=== PATIENT | female | born 1935 | race African-American/Black ===

== ENCOUNTER 2019-07-07 14:38 | Inpatient (IN) | payer MEDICARE ==
[~2019-07-07] VITALS: Ht 162.6 cm; Wt 70.3 kg
[2019-07-07] MEDS ORDERED: METFORMIN HCL500 M1 ORAL (14:46)
[2019-07-07] MEDS ORDERED: Morphine Sulfate 2mg/ml Inj(IV/IM USE ONLY) IVP ONE (15:00)
--- NOTE | 2019-07-07 15:09 | Emergency Room Report ---
History of Present Illness General Chief Complaint: Lower Extremity Injury Source: Patient, EMS Present Illness HPI 83-year-old female presents ED for evaluation. Brought in by EMS from home. Patient had mechanical fall today. Complaining of left hip pain. Denies hitting her head or LOC. Unable to bear weight. 10 out of 10, sharp, radiating through the thigh. Was given fentanyl IV for pain by EMS. No other aggravating relieving factors. Denies any other associated symptoms Allergies: Coded Allergies: No Known Allergies (Unverified , 07/07/19) Patient History Past Medical History: DM, HTN Past Surgical History: none Pertinent Family History: none Social History: Denies: smoking, alcohol use, drug use Now: No Immunizations: UTD Reviewed Nursing Documentation: PMH: Agreed; PSxH: Agreed Nursing Documentation-PMH Past Medical History: No History, Except For Hx Hypertension: Yes Hx Diabetes: Yes Review of Systems All Other Systems: negative except mentioned in HPI Physical Exam Vital Signs Date Time Temp Pulse Resp B/P (MAP) Pulse Ox O2 Delivery O2 Flow Rate FiO2 07/07/19 14:42 98.2 64 16 154/58 (90) 99 Room Air Sp02 EP Interpretation: reviewed, normal General Appearance: no apparent distress, alert, GCS 15, non-toxic Head: normocephalic, atraumatic Eyes: bilateral eye normal inspection, bilateral eye PERRL ENT: hearing grossly normal, normal pharynx, no angioedema, normal voice Neck: full range of motion, supple/symm/no masses Respiratory: chest non-tender, lungs clear, normal breath sounds, speaking full sentences Cardiovascular #1: regular rate, rhythm, no edema Cardiovascular #2: 2+ carotid (R), 2+ carotid (L), 2+ radial (R), 2+ radial (L) , 2+ dorsalis pedis (R), 2+ dorsalis pedis (L) Gastrointestinal: normal bowel sounds, non tender, soft, non-distended, no guarding, no rebound Rectal: deferred Genitourinary: normal inspection, no CVA tenderness, ext genitalia/vag normal Musculoskeletal: back normal, decreased range of motion, normal range of motion , gait/station normal, tender - L femur, L hip Neurologic: alert, motor strength/tone normal, oriented x3, sensory intact, responsive, speech normal Psychiatric: judgement/insight normal, memory normal, mood/affect normal, no suicidal/homicidal ideation Reflexes: 3+ bicep (R), 3+ bicep (L), 3+ tricep (R), 3+ tricep (L), 3+ knee (R) , 3+ knee (L) Skin: other - see nursing skin notes Lymphatic: no adenopathy Medical Decision Making Diagnostic Impression: Primary Impression: Intertrochanteric fracture of left femur Qualified Codes: S72.145A - Nondisplaced intertrochanteric fracture of left femur, initial encounter for closed fracture ER Course Hospital Course 83-year-old female presents to ED with L hip pain s/p fall Differential diagnoses include: fracture, dislocation, contusion Clinical course Patient placed on stretcher. After initial history and physical I ordered labs , pain medication and imaging studies Labs reviewed-mild leukocytosis noted, electrolytes okay, hemoglobin/hematocrit okay Femur x-ray L intertrochanteric fx CT Pelvis shows L intertrochanteric fx Case discussed with Dr. Hernandez who agreed to consult on this case. With family and patient at bedside. Case discussed with Dr. Alfredo who agreed to accept the patient to his service for further care and support i. I feel this is a highly complex case requiring extensive working including EKG/Rhythm strip, Xray/CT/US, Blood/urine lab work, repeat exams while in ED, and administration of strong opiates/narcotics for pain control, admission to hospital or close patient follow up. Diagnosis - intertrochanteric fracture left femur Admitted to floor in serious condition Labs Test 07/07/19 15:08 White Blood Count 17.0 K/UL (4.8-10.8) Red Blood Count 4.13 M/UL (4.20-5.40) Hemoglobin 12.0 G/DL (12.0-16.0) Hematocrit 34.8 % (37.0-47.0) Mean Corpuscular Volume 84 FL (80-99) Mean Corpuscular Hemoglobin 28.9 PG (27.0-31.0) Mean Corpuscular Hemoglobin Concent 34.4 G/DL (32.0-36.0) Red Cell Distribution Width 11.5 % (11.6-14.8) Platelet Count 221 K/UL (150-450) Mean Platelet Volume 6.2 FL (6.5-10.1) Neutrophils (%) (Auto) 84.2 % (45.0-75.0) Lymphocytes (%) (Auto) 8.0 % (20.0-45.0) Monocytes (%) (Auto) 5.2 % (1.0-10.0) Eosinophils (%) (Auto) 1.7 % (0.0-3.0) Basophils (%) (Auto) 1.0 % (0.0-2.0) Prothrombin Time 10.3 SEC (9.30-11.50) Prothromb Time International Ratio 1.0 (0.9-1.1) Activated Partial Thromboplast Time 26 SEC (23-33) Sodium Level 138 MMOL/L (136-145) Potassium Level 4.6 MMOL/L (3.5-5.1) Chloride Level 102 MMOL/L (98-107) Carbon Dioxide Level 24 MMOL/L (21-32) Anion Gap 12 mmol/L (5-15) Blood Urea Nitrogen 22 mg/dL (7-18) Creatinine 0.9 MG/DL (0.55-1.30) Estimat Glomerular Filtration Rate 59.7 mL/min (>60) Glucose Level 143 MG/DL (74-106) Calcium Level 9.4 MG/DL (8.5-10.1) Total Bilirubin 0.4 MG/DL (0.2-1.0) Aspartate Amino Transf (AST/SGOT) 15 U/L (15-37) Alanine Aminotransferase (ALT/SGPT) 16 U/L (12-78) Alkaline Phosphatase 78 U/L (46-116) Total Protein 7.3 G/DL (6.4-8.2) Albumin 3.7 G/DL (3.4-5.0) Globulin 3.6 g/dL Albumin/Globulin Ratio 1.0 (1.0-2.7) Other X-Ray Diagnostic Results Other X-Ray Diagnostic Results : X-Ray ordered: L femur # of Views/Limited Vs Complete: 3 View Indication: Pain EP Interpretation: Yes Interpretation: no dislocation, no soft tissue swelling, other - L intertrochanteric fx Impression: Other - fx Electronically Signed by: Electronically signed by Damaso Gillis MD CT/MRI/US Diagnostic Results CT/MRI/US Diagnostic Results : Imaging Test Ordered: CT Pelvis Impression Comparison: none Findings: There is a nondisplaced intertrochanteric left hip fracture. There is evidence of a slight left-sided soft tissue confusion of the subcutaneous fat as well as the musculature posterior to the intertrochanteric region. No evidence of pelvic fracture demonstrated. No evidence of sacral fracture. The joint spaces are preserved. There are degenerative changes of the lumbosacral junction and sacroiliac joints. The pelvic viscera demonstrate colonic diverticulosis. Last Vital Signs Date Time Temp Pulse Resp B/P (MAP) Pulse Ox O2 Delivery O2 Flow Rate FiO2 07/07/19 14:42 98.2 64 16 154/58 (90) 99 Room Air Status: improved Disposition: ADMITTED INPATIENT Condition: Serious Damaso Gillis MD Jul 07, 2019 15:09
[2019-07-07 15:39] LABS: EOSINOPHILS % (AUTO) 1.7 % (0.0-3.0); HEMATOCRIT 34.8 % (37.0-47.0); MEAN CORPUSCULAR VOLUME 84 FL (80-99); MONOCYTES % (AUTO) 5.2 % (1.0-10.0); NEUTROPHILS % (AUTO) 84.2 % (45.0-75.0); PLATELET COUNT 221 K/UL (150-450); RED BLOOD COUNT 4.13 M/UL (4.20-5.40); RED CELL DISTRIBUTION WIDTH 11.5 % (11.6-14.8)
[2019-07-07 16:02] LABS: ALANINE AMINOTRANSFERASE 16 U/L (12-78); ALBUMIN 3.7 G/DL (3.4-5.0); ALKALINE PHOSPHATASE 78 U/L (46-116); ANION GAP 12 mmol/L (5-15); ASPARTATE AMINO TRANSFERASE 15 U/L (15-37); BILIRUBIN,TOTAL 0.4 MG/DL (0.2-1.0); BLOOD UREA NITROGEN 22 mg/dL (7-18); CALCIUM 9.4 MG/DL (8.5-10.1); CARBON DIOXIDE 24 MMOL/L (21-32); CHLORIDE 102 MMOL/L (98-107); CREATININE 0.9 MG/DL (0.55-1.30); POTASSIUM 4.6 MMOL/L (3.5-5.1); SODIUM 138 MMOL/L (136-145)
--- NOTE | 2019-07-07 16:07 | Diagnostic Imaging Report ---
Indication: Pelvic pain and hip pain status post mechanical fall today Technique: Noncontrast spiral acquisitions obtained through the pelvis. Multiplanar reconstructions generated. Total dose length product 215 mGycm. CTDIvol(s) 5.9 mGy. Dose reduction achieved using automated exposure control Comparison: none Findings: There is a nondisplaced intertrochanteric left hip fracture. There is evidence of a slight left-sided soft tissue confusion of the subcutaneous fat as well as the musculature posterior to the intertrochanteric region. No evidence of pelvic fracture demonstrated. No evidence of sacral fracture. The joint spaces are preserved. There are degenerative changes of the lumbosacral junction and sacroiliac joints. The pelvic viscera demonstrate colonic diverticulosis. Impression: Positive for nondisplaced left hip intertrochanteric fracture. There is mild overlying soft tissue contusion demonstrated Degenerative changes, as described Colonic diverticulosis incidentally noted The CT scanner at [facility] is accredited by the [employer] and the scans are performed using protocols designed to limit radiation exposure to as low as reasonably achievable to attain images of sufficient resolution adequate for diagnostic evaluation.
--- NOTE | 2019-07-07 17:12 | Diagnostic Imaging Report ---
. Indications: Pain, status post fall Technique: Two views of the left femur Comparison: None Findings: There is a nondisplaced intertrochanteric fracture of the left hip. No distal femoral fracture demonstrated. There are degenerative changes of the knee joint. Calcifications centrally within the knee may reflect an old bone infarct. There are also vascular calcifications. Impression: Positive for left hip intertrochanteric fracture, also described on separate CT scan Other findings as noted
[2019-07-07 19:00] VITALS: BP 142/62
[2019-07-07] MEDS ORDERED: FUROSEMIDE40 MG ORAL (19:22)
[2019-07-07] MEDS ORDERED: PRAVACHOL40 MG ORAL (19:23)
[2019-07-07] MEDS ORDERED: AMLODIPINE BESY10 MG ORAL (19:23)
[2019-07-07] MEDS ORDERED: COREG25 MG ORAL (19:23)
[2019-07-07] MEDS ORDERED: Morphine Sulfate 2mg/ml Inj(IV/IM USE ONLY) IVP PRN (19:33)
--- NOTE | 2019-07-07 21:12 | Cardiology Progress Note ---
Assessment/Plan Assessment/Plan pt evlauted at bedside full ntoe to follwoe ortho called by er Objective Last 24 Hour Vital Signs Date Time Temp Pulse Resp B/P (MAP) Pulse Ox O2 Delivery O2 Flow Rate FiO2 07/07/19 19:00 99.0 71 20 142/62 (88) 95 07/07/19 15:45 98.3 07/07/19 14:42 98.2 64 16 154/58 (90) 99 Room Air Laboratory Tests Test 07/07/19 15:08 White Blood Count 17.0 K/UL (4.8-10.8) H Red Blood Count 4.13 M/UL (4.20-5.40) L Hemoglobin 12.0 G/DL (12.0-16.0) Hematocrit 34.8 % (37.0-47.0) L Mean Corpuscular Volume 84 FL (80-99) Mean Corpuscular Hemoglobin 28.9 PG (27.0-31.0) Mean Corpuscular Hemoglobin Concent 34.4 G/DL (32.0-36.0) Red Cell Distribution Width 11.5 % (11.6-14.8) L Platelet Count 221 K/UL (150-450) Mean Platelet Volume 6.2 FL (6.5-10.1) L Neutrophils (%) (Auto) 84.2 % (45.0-75.0) H Lymphocytes (%) (Auto) 8.0 % (20.0-45.0) L Monocytes (%) (Auto) 5.2 % (1.0-10.0) Eosinophils (%) (Auto) 1.7 % (0.0-3.0) Basophils (%) (Auto) 1.0 % (0.0-2.0) Prothrombin Time 10.3 SEC (9.30-11.50) Prothromb Time International Ratio 1.0 (0.9-1.1) Activated Partial Thromboplast Time 26 SEC (23-33) Sodium Level 138 MMOL/L (136-145) Potassium Level 4.6 MMOL/L (3.5-5.1) Chloride Level 102 MMOL/L (98-107) Carbon Dioxide Level 24 MMOL/L (21-32) Anion Gap 12 mmol/L (5-15) Blood Urea Nitrogen 22 mg/dL (7-18) H Creatinine 0.9 MG/DL (0.55-1.30) Estimat Glomerular Filtration Rate 59.7 mL/min (>60) Glucose Level 143 MG/DL (74-106) H Calcium Level 9.4 MG/DL (8.5-10.1) Total Bilirubin 0.4 MG/DL (0.2-1.0) Aspartate Amino Transf (AST/SGOT) 15 U/L (15-37) Alanine Aminotransferase (ALT/SGPT) 16 U/L (12-78) Alkaline Phosphatase 78 U/L (46-116) Total Protein 7.3 G/DL (6.4-8.2) Albumin 3.7 G/DL (3.4-5.0) Globulin 3.6 g/dL Albumin/Globulin Ratio 1.0 (1.0-2.7) Tim Alfredo MD Jul 07, 2019 21:12
[2019-07-07] MEDS ORDERED: Miralax 17gm pkt ORAL PRN (21:15)
[2019-07-07] MEDS ORDERED: DiphenhydrAMINE 25mg Tab ORAL PRN (21:15)
[2019-07-07] MEDS ORDERED: Mylanta II UD 30ml ORAL PRN (21:15)
[2019-07-07] MEDS ORDERED: Milk of Magnesia 30ml Ud ORAL PRN (21:15)
[2019-07-07] MEDS: Heparin 5000 units/ml inj SUBQ SCH (21:15)
[2019-07-08] VITALS: BP 134/43
[2019-07-08 04:00] VITALS: BP 152/60
[2019-07-08] MEDS: HYDROcodone/Acetamin 7.5/325 tab ORAL PRN (06:15)
[2019-07-08 07:11] LABS: BASOPHILS % (AUTO) 1.1 % (0.0-2.0); EOSINOPHILS % (AUTO) 5.1 % (0.0-3.0); HEMATOCRIT 28.8 % (37.0-47.0); LYMPHOCYTES % (AUTO) 12.5 % (20.0-45.0); MEAN CORPUSCULAR VOLUME 83 FL (80-99); MONOCYTES % (AUTO) 10.3 % (1.0-10.0); PLATELET COUNT 198 K/UL (150-450); RED BLOOD COUNT 3.45 M/UL (4.20-5.40); RED CELL DISTRIBUTION WIDTH 11.6 % (11.6-14.8); WHITE BLOOD COUNT 8.3 K/UL (4.8-10.8)
[2019-07-08 07:19] LABS: ALANINE AMINOTRANSFERASE 14 U/L (12-78); ALBUMIN 2.9 G/DL (3.4-5.0); ALBUMIN/GLOBULIN RATIO 0.9 (1.0-2.7); ALKALINE PHOSPHATASE 61 U/L (46-116); ANION GAP 9 mmol/L (5-15); ASPARTATE AMINO TRANSFERASE 13 U/L (15-37); BILIRUBIN,TOTAL 0.4 MG/DL (0.2-1.0); BLOOD UREA NITROGEN 16 mg/dL (7-18); CALCIUM 8.8 MG/DL (8.5-10.1); CARBON DIOXIDE 25 MMOL/L (21-32); CHLORIDE 106 MMOL/L (98-107); CREATININE 0.8 MG/DL (0.55-1.30); POTASSIUM 4.2 MMOL/L (3.5-5.1); SODIUM 140 MMOL/L (136-145)
[2019-07-08 08:00] VITALS: BP 128/54
--- NOTE | 2019-07-08 08:22 | Consultation ---
Consult Note Consult Note 83 yo female coming from home with mechanical fall yesterday. c/o left hip pain xray and ct with non displaced left IT fracture PMhx HTN independent with activities, lives at home with grandson NKDA Assessment/Plan left hip IT fracture 1. plan for ORIF tomorrow 2. 2D echo 3. med clearance 4. d/w pt and nursing. full note dictated risks/benefits discussed. Dary King Jul 08, 2019 08:22
--- NOTE | 2019-07-08 08:37 | Diagnostic Imaging Report ---
. Indication: Cough Technique: One view of the chest Comparison: None Findings: The heart is enlarged. There is bilateral interstitial prominence. No focal airspace consolidation. No effusions. There is probably a calcified granuloma in the left midlung periphery Impression: Cardiomegaly Mild interstitial prominence, acuity indeterminate, could indicate mild interstitial edema or chronic fibrotic/senescent changes. Correlate with clinical findings
[2019-07-08] MEDS ORDERED: Lexiscan 0.4mg/5ml syringe IV PRN ×2 (09:30→21:15)
[2019-07-08] MEDS: Heparin 5000 units/ml inj SUBQ SCH ×2 (09:36→21:56)
[2019-07-08] MEDS: Irbesartan 150mg tablet ORAL SCH ×2 (09:37→17:27)
[2019-07-08] MEDS: Carvedilol 25mg Tab ORAL SCH (09:37)
[2019-07-08] MEDS: metFORMIN 500mg tab ORAL SCH (09:37)
[2019-07-08] MEDS: Docusate 100mg cap ORAL SCH ×2 (09:38→21:00)
[2019-07-08 12:00] VITALS: BP 113/62
[2019-07-08] MEDS: Morphine Sulfate 2mg/ml Inj(IV/IM USE ONLY) IVP PRN (12:12)
--- NOTE | 2019-07-08 15:45 | Consultation ---
DATE OF CONSULTATION: 07/08/2019 ORTHOPEDIC CONSULTATION CONSULTING PHYSICIAN: Leobardo Green M.D. HISTORY OF PRESENT ILLNESS: The patient is a very pleasant 83-year-old female who had a witnessed mechanical fall at home yesterday. She was ambulating and she tripped, she fell. She complained of left hip pain. Her grandson called emergency services and she was transferred to [facility] here where she was noted to have a nondisplaced left hip IT fracture. The patient was admitted and orthopedic consult was called for surgical intervention. The patient is an overall healthy female with her blood pressure well controlled. She is independent with all her activities and lives at home with her grandson. She does not normally need a walker to get around. She has complained of left hip pain 10/10 which has been somewhat lessened with the pain medication provided. PAST MEDICAL HISTORY: High blood pressure. PAST SURGICAL HISTORY: None. CURRENT MEDICATIONS: Please see chart. ALLERGIES: None. SOCIAL HISTORY: She is independent with activities. She lives at home with her grandson. She does not drink or smoke. REVIEW OF SYSTEMS: Negative with only left hip pain being positive. PHYSICAL EXAMINATION: GENERAL: She is a very pleasant woman. She is cooperative with examination. She is alert and oriented and answering questions appropriately and able to account accurate history confirmed via chart documentation. MUSCULOSKELETAL: She has significant left hip pain and tenderness without shortening, although some mild external rotation. She is neurovascularly intact. She can wiggle her toes. There is no open wounds or ulcerations or sign of skin breakdown. IMAGING: X-ray was reviewed. There is nondisplaced intertrochanteric fracture. CT is reviewed. There is a left hip nondisplaced intertrochanteric fracture. IMPRESSION: Left hip nondisplaced intertrochanteric fracture in an independent 83-year-old female who lives at home. DISCUSSION: At this time, I discussed with the patient my findings. We talked about treatment, surgery versus non-surgery, and I recommended at this point going forward open reduction and internal fixation with short gamma nail. She would like to have that done. She lives at home with her grandson and is mainly independent with her activities and she would like to get back to the level of functioning. She understands what is involved with surgery including risks of surgery such as nerve injury, vessel injury, risk of infection, bleeding, risk of fracture, hardware failure, need for revision surgery down the line as well as risk of anesthesia, and the risk of morbidity with any surgery have all been discussed. She understands what is involved. She does want to get this done and we will work on getting her cleared by Dr. Alfredo and ready for surgery likely tomorrow. All questions were answered. This was discussed with the patient at bedside, who verbalized all understanding, and also discussed with the nursing staff. Leobardo Green M.D. Aurelia Jamil DR: CHRISTINA JOB#: [id number] CC:
[2019-07-08 16:00] VITALS: BP 137/52
--- NOTE | 2019-07-08 17:30 | History and Physical Report ---
DATE OF ADMISSION: 07/07/2019 REASON FOR ADMISSION: Hip fracture. HISTORY OF PRESENT ILLNESS: This is an elderly female, who is known to me from the office. The patient has really no cardiac issues of any significant degree. She apparently lost her daughter recently and was at home, had been drinking some water, got up to go from one room to the other room and eventually go to the the bathroom, felt a bit urgent need to urinate, and wanted to stop herself from urinating. She twisted and fell on her hip and injured her hip. She eventually called for help, her grandson came by, and with a lot of pain did pick her up. She eventually went to the bathroom and then because of severity of the pain, the paramedics were summoned. The patient was brought to the emergency department of [facility] with diagnosis of a hip fracture. The patient is now admitted for pain control and surgical therapy. She absolutely denies any pain, pressure, tightness, heaviness, or discomfort of any kind in the chest. She has not had any shortness of breath at rest or with exertion. She uses two pillows at home just for comfort. There is no dizziness or lightheadedness on standing. No heart pounding or palpitation. she has been active. She has never had any kind of chest pains. PAST MEDICAL HISTORY: Positive for incidental finding of patent riddle ovale on one of her echocardiographies. She has a prior history of LV dysfunction that seems to have resolved. Her myocardial perfusion imaging at [facility] showed ejection fraction of 50%. She has history of pulmonary hypertension of mild degree. She has history of diabetes borderline and peripheral edema. She has hyperlipidemia. She has had prior history of LV dysfunction, which has resolved. SOCIAL HISTORY: Never smoked or drank. No drugs. She lives with her grandson. FAMILY HISTORY: Negative. ALLERGIES: She is not allergic to any medications. MEDICATIONS: Medications at home are listed as amlodipine 10 mg a day, aspirin 81 mg a day, carvedilol 12.5 mg twice a day, vitamin D 5,000 units daily, Lasix 40 mg every other day, metformin 500 mg two times daily, pravastatin 80 mg at night, and telmisartan 80 mg at night. REVIEW OF SYSTEMS: GASTROINTESTINAL: Negative. GENITOURINARY: Negative. PULMONARY: Negative. CONSTITUTIONAL: Negative. NEUROLOGIC: Negative. CARDIAC: As mentioned in HPI. PHYSICAL EXAMINATION: GENERAL: Shows to be elderly female, in no respiratory distress. NECK: Supple. No jugular venous distention is noted. LUNGS: Clear to auscultation and percussion. CARDIAC: S1 is normal. S2 is normal. Regular rate and rhythm. There is a systolic ejection murmur noted. ABDOMEN: Soft, nontender. Positive bowel sounds. EXTREMITIES: There is no clubbing, cyanosis, or edema. NEUROLOGIC: She is awake and responsive. LABORATORY AND DIAGNOSTIC DATA: White count 17, hemoglobin 12, and platelet count of 221,000. Sodium 138, potassium , chloride 102, bicarb 24, BUN of 22, creatinine 0.9, glucose of 143, calcium is 9.3. AST and ALT within normal limits. Albumin of 3.7. INR 1 and PTT of 26. Femur x-rays showed left hip intertrochanteric fracture and CT scan of the pelvis also showed a nondisplaced left hip intertrochanteric fracture, there is overlying soft tissue contusion as well, and colonic diverticulosis. ASSESSMENT AND PLAN: 1. Nonsyncopal fall. 2. Hip fracture. 3. Diabetes mellitus. 4. History of patent foramen ovale. 5. Her last echocardiogram was performed two weeks ago in the office showed normal left ventricular systolic function with ejection fraction of 55% to 60%. No atrial enlargement, IVC was normal, there is mild MR with mild MS with mitral valve area of 2.4, mild with a peak gradient of 17 and a mean gradient of 9. This patient was seen in Medicine consultation and admitted to the hospital because of a hip fracture. She is in severe amount of pain. She has no prior cardiac history. Her EKG has been ordered as preop. Her last echocardiogram in the office was sinus rhythm with left axis deviation. No other significant abnormalities. This was performed on June 04, 2019; await final report. Urinalysis will be ordered. Chest x-ray will be ordered. The patient is on subcu heparin. Her usual medications have been started. Orthopedic consultation has been requested and pending those results. Tim Alfredo M.D. DR: SONJA JOB#: [id number] CC:
[2019-07-08 19:49] LABS: APPEARANCE,URINE CLEAR; BILIRUBIN, URINE NEGATIVE (NEGATIVE); COLOR,URINE PALE YELLOW; GLUCOSE, URINE (UA) NEGATIVE (NEGATIVE); KETONES,URINE NEGATIVE (NEGATIVE); LEUKOCYTE ESTERASE ,URINE NEGATIVE (NEGATIVE); NITRITE,URINE NEGATIVE (NEGATIVE); PH,URINE 5 (4.5-8.0); PROTEIN,URINE NEGATIVE (NEGATIVE); UROBILINOGEN,URINE NORMAL MG/DL (0.0-1.0)
[2019-07-08 20:00] VITALS: BP 125/61
--- NOTE | 2019-07-08 21:11 | Cardiology Progress Note ---
Assessment/Plan Assessment/Plan 1. Nonsyncopal fall. 2. Hip fracture. 3. Diabetes mellitus. 4. History of patent foramen ovale 5. new sig pum. htn 6. Diastolic dysfunction failure will hold surgery in light of pulm htn will try transfer to [facility] for cardiac anesthesia dc ivf iv diuretic ischemia evaluation [facility] and office record reviewed d/w pulm d/w ortho d/s transfer center at [facility] Subjective Cardiovascular: Denies: chest pain, lightheadedness, palpitations Respiratory: Denies: shortness of breath Gastrointestinal/Abdominal: Denies: abdominal pain Genitourinary: Denies: burning Objective Last 24 Hour Vital Signs Date Time Temp Pulse Resp B/P (MAP) Pulse Ox O2 Delivery O2 Flow Rate FiO2 07/08/19 17:27 137/52 07/08/19 16:00 98.2 66 20 137/52 (80) 96 07/08/19 12:00 98.3 67 20 113/62 (79) 98 67 07/08/19 09:37 128/54 07/08/19 09:37 82 128/54 07/08/19 09:37 82 128/54 07/08/19 09:00 Room Air 07/08/19 08:00 99.5 82 19 128/54 (78) 94 82 07/08/19 04:00 99.6 76 16 152/60 (90) 94 76 07/08/19 00:00 99.2 72 20 134/43 (73) 96 General Appearance: no apparent distress, alert Neck: supple Cardiovascular: normal rate Respiratory/Chest: crackles/rales Abdomen: normal bowel sounds, non tender, soft Extremities: no swelling Intake and Output 07/07/19 07/08/19 19:00 07:00 Output Total 1200 ml Balance -1200 ml Output Urine Total 1200 ml # Voids 1 1 Laboratory Tests Test 07/08/19 05:35 07/08/19 18:30 White Blood Count 8.3 K/UL (4.8-10.8) # Red Blood Count 3.45 M/UL (4.20-5.40) L Hemoglobin 10.0 G/DL (12.0-16.0) L Hematocrit 28.8 % (37.0-47.0) L Mean Corpuscular Volume 83 FL (80-99) Mean Corpuscular Hemoglobin 28.9 PG (27.0-31.0) Mean Corpuscular Hemoglobin Concent 34.7 G/DL (32.0-36.0) Red Cell Distribution Width 11.6 % (11.6-14.8) Platelet Count 198 K/UL (150-450) Mean Platelet Volume 6.2 FL (6.5-10.1) L Neutrophils (%) (Auto) 71.0 % (45.0-75.0) Lymphocytes (%) (Auto) 12.5 % (20.0-45.0) L Monocytes (%) (Auto) 10.3 % (1.0-10.0) H Eosinophils (%) (Auto) 5.1 % (0.0-3.0) H Basophils (%) (Auto) 1.1 % (0.0-2.0) Sodium Level 140 MMOL/L (136-145) Potassium Level 4.2 MMOL/L (3.5-5.1) Chloride Level 106 MMOL/L (98-107) Carbon Dioxide Level 25 MMOL/L (21-32) Anion Gap 9 mmol/L (5-15) Blood Urea Nitrogen 16 mg/dL (7-18) Creatinine 0.8 MG/DL (0.55-1.30) Estimat Glomerular Filtration Rate > 60 mL/min (>60) Glucose Level 123 MG/DL (74-106) H Calcium Level 8.8 MG/DL (8.5-10.1) Magnesium Level 2.0 MG/DL (1.8-2.4) Total Bilirubin 0.4 MG/DL (0.2-1.0) Aspartate Amino Transf (AST/SGOT) 13 U/L (15-37) L Alanine Aminotransferase (ALT/SGPT) 14 U/L (12-78) Alkaline Phosphatase 61 U/L (46-116) Total Protein 6.0 G/DL (6.4-8.2) L Albumin 2.9 G/DL (3.4-5.0) L Globulin 3.1 g/dL Albumin/Globulin Ratio 0.9 (1.0-2.7) L Urine Color Pale yellow Urine Appearance Clear Urine pH 5 (4.5-8.0) Urine Specific Morley 1.010 (1.005-1.035) Urine Protein Negative (NEGATIVE) Urine Glucose (UA) Negative (NEGATIVE) Urine Ketones Negative (NEGATIVE) Urine Blood Negative (NEGATIVE) Urine Nitrite Negative (NEGATIVE) Urine Bilirubin Negative (NEGATIVE) Urine Urobilinogen Normal MG/DL (0.0-1.0) Urine Leukocyte Esterase Negative (NEGATIVE) Tim Alfredo MD Jul 08, 2019 21:11
[2019-07-09] MEDS: Morphine Sulfate 2mg/ml Inj(IV/IM USE ONLY) IVP PRN ×3 (00:14→18:42)
[2019-07-09 04:00] VITALS: BP 125/69
[2019-07-09 07:16] LABS: ANION GAP 9 mmol/L (5-15); BLOOD UREA NITROGEN 13 mg/dL (7-18); CALCIUM 8.7 MG/DL (8.5-10.1); CARBON DIOXIDE 27 MMOL/L (21-32); CHLORIDE 102 MMOL/L (98-107); CREATININE 0.8 MG/DL (0.55-1.30); POTASSIUM 4.1 MMOL/L (3.5-5.1); SODIUM 138 MMOL/L (136-145)
[2019-07-09 08:00] VITALS: BP 151/69
[2019-07-09] MEDS: Docusate 100mg cap ORAL SCH ×2 (09:00→21:10)
[2019-07-09] MEDS: Carvedilol 25mg Tab ORAL SCH (09:15)
[2019-07-09] MEDS: Irbesartan 150mg tablet ORAL SCH ×2 (09:16→18:19)
[2019-07-09] MEDS: metFORMIN 500mg tab ORAL SCH (09:16)
[2019-07-09] MEDS: Heparin 5000 units/ml inj SUBQ SCH ×2 (09:17→21:12)
--- NOTE | 2019-07-09 10:24 | Consultation ---
Consult Note Consult Note s/w Dr. Alfredo that due to cardiac risk pt is high risk surgical candidate and should have sx under cardiac anesthesia. He recommended tx to [facility] for further cardiac care. We will cancel hip sx here and notify Dr. Ray Orozco at [facility] that pt is being transferred for further ortho care and surgery to be conducted there with cardiac anesthesia. Dary King Jul 09, 2019 10:24
[2019-07-09 12:00] VITALS: BP 146/58
--- NOTE | 2019-07-09 12:56 | CDS Physician Query ---
Clarification is required for compliance, coding accuracy, and to reflect severity of illness for this patient Dear Tim Renner MD Date: 07/09/2019 Licensed Final Expense Agents/CDS Name: Parveen Bullock This is an elderly female, who is known to me from the office. The patient has really no cardiac issues of any significant degree. She apparently lost her daughter recently and was at home, had been drinking some water, got up to go from one room to the other room and eventually go to the the bathroom, felt a bit urgent need to urinate, and wanted to stop herself from urinating. She twisted and fell on her hip and injured her hip. Assessment/Plan Assessment/Plan History of patent foramen ovale new sig pum. htn Diastolic dysfunction failure BNP: 4402 Tx: IV FUROSEMIDE "Heart Failure / CHF" documented in Consultation notes Please Clarify: Acuity [] Acute [] Chronic [] Acute on Chronic Present on Admission: [] Yes [] No [] Clinically Undetermined Physician signature Date Please also document in your Progress Notes and/or Discharge Summary and indicate if the condition was present on admission. MTDD
[2019-07-09 16:00] VITALS: BP 136/47
--- NOTE | 2019-07-09 16:46 | Consultation ---
Consult Note Assessment/Plan DICT # [id number] Med Horton MD Jul 09, 2019 16:46
[2019-07-09 18:15] VITALS: BP 133/50
[2019-07-09 20:00] VITALS: BP 158/62
--- NOTE | 2019-07-09 21:00 | Consultation ---
DATE OF CONSULTATION: 07/09/2019 PULMONARY CONSULTATION CONSULTING PHYSICIAN: Med Horton M.D. REFERRING PHYSICIAN: Tim Alfredo M.D. REASON FOR CONSULTATION: Pulmonary hypertension. HISTORY OF PRESENT ILLNESS: The patient is an 83-year-old female with history of CHF with mild diastolic dysfunction and pulmonary hypertension, who has no prior lung disease, who came in after a mechanical fall and was noted to have a hip fracture. Pulmonary consultation has been called given severe pulmonary hypertension noted on echocardiogram, which demonstrated a PA systolic pressure of 84, with kpin-tv-[id number] TR, trace pulmonic regurgitation, mild diastolic dysfunction, mitral regurgitation, normal LVEF of 60%, and normal IVC. The patient has been seen and evaluated by Dr. Tim Alfredo, freight trucker, who called me for further discussions regarding management of the patient's pulmonary hypertension. The patient has no history of Fen-Phen use. No history of prior venous thromboembolism. No history of underlying COPD, interstitial lung disease, or tobacco use in the past and states that prior to this, she had no respiratory issues. In fact, she states that prior to this fall, she could easily navigate a supermarket, a mall, or multiple flights of stairs without difficulty. Since presenting to [facility], she has been afebrile with stable vital signs except for elevated blood pressure. She has been saturating fairly well on room air to 2 L. Other than leukocytosis on presentation which has resolved, her laboratory workup was unremarkable. CT of her pelvis shows a nondisplaced left hip intertrochanteric fracture and x-ray of her chest demonstrates cardiomegaly with some mild interstitial prominence. PAST MEDICAL HISTORY: 1. CHF with mild diastolic dysfunction. 2. History of PFO. 3. Diabetes. 4. Hyperlipidemia. 5. Hypertension. ALLERGIES: No known drug allergies. MEDICATIONS: Lesvr-ae-zkygssbau medications are Norvasc 10 mg p.o. daily, Coreg 25 mg p.o. daily, Lasix 40 mg every other day, metformin 500 mg daily, and pravastatin 40 mg daily. SOCIAL HISTORY: No tobacco, alcohol, or drug use. She recently lost her daughter. She lives with her grandson and has intact support structure. FAMILY HISTORY: Noncontributory. REVIEW OF SYSTEMS: Negative other than history of present illness. PHYSICAL EXAMINATION: VITAL SIGNS: Temperature 98.3, pulse 71, blood pressure 115/69, respiratory rate 17, and saturating 97% in room air. GENERAL: She is a well-developed, well-nourished, elderly female, in no acute distress. Awake, alert, and oriented x3. HEENT: Normocephalic and atraumatic. Oropharynx is clear with moist mucous membranes. NECK: Supple without lymphadenopathy or jugular venous distention. CHEST: Clear to auscultation bilaterally. Decreased at the bases. HEART: Regular rate and rhythm. There is a prominent P2 noted. ABDOMEN: Soft, nontender, nondistended. EXTREMITIES: No cyanosis, clubbing, or edema. ANCILLARY DATA: White count 8.3, hemoglobin 10, and platelet count 198,000. INR 1. Sodium 138, potassium 4.1, chloride 102, bicarbonate 27, BUN 13, creatinine 0.8, glucose 118. BNP 4408. Chest x-ray, no acute findings. Pelvic x-ray, noted. Echocardiogram, LVEF of 60%, mild LVH, normal TR, normal pulmonic valve, IVC normal collapsible, PA pressure of 84 with [id number] TR, and normal RV. Last echo at [facility] on 10/31/2017, showed PA pressure of 29; it was previously 71 when my partner, Dr. Zhang Asencio, saw the patient at [facility] in 2017. At that point, basic serologies were sent off. RALPH was 160. Subtypes were negative. Rheumatoid factor was negative. ANCA was negative. CT or V/Q scan was not done. Right heart cath has never been done. ASSESSMENT: The patient is an 83-year-old female with history of hypertension, diabetes, hyperlipidemia, presenting with a mechanical fall and left hip intertrochanteric fracture. She was noted to have severe pulmonary hypertension, disproportionate to her LV dysfunction. She has no known history of prior venous thromboembolism, diet-pill use, or underlying lung disease. Of note, she had pulmonary hypertension in the past, which resolved on a followup echocardiogram. The etiology is not entirely clear, but I suspect that it is multifactorial secondary to underlying diastolic dysfunction and a possible precapillary component. Nonetheless, at this point, I do not feel it is safe for the patient to undergo general anesthesia at [facility] without cardiac anesthesiologist. I would recommend transfer to higher level of care for operation to be done with cardiac anesthesia or under local sedation. Furthermore, with respect to workup of her pulmonary hypertension, she needs at a minimum high-resolution CT of the chest and a V/Q scan to rule out chronic thromboembolic disease. Once she arrives at the higher level hospital, we can consider right heart catheterization if that would help optimize management in the operating room. PROBLEM LIST: 1. Pulmonary hypertension, etiology unknown, but likely multifactorial with a precapillary component as well as a component secondary to left heart disease. 2. CHF with mild diastolic dysfunction. 3. Avvk-ia-sotdgktk tricuspid regurgitation. 4. Left hip intertrochanteric fracture. 5. Hypertension. 6. Hyperlipidemia. 7. Diabetes. TREATMENT PLAN: 1. I will hold off on ordering serologies for now as they were done in 2016, and were only significant for an elevated RALPH though all subtypes were negative. 2. I will obtain a baseline CT scan of the chest to evaluate for parenchymal disease. 3. We will obtain V/Q scan to evaluate for underlying venous thromboembolic disease. 4. Monitor volumes and renal function, avoid over-diuresis given echo is not suggestive of elevated filling pressures and the patient probably has a component of RV preload dependence. 5. Transfer to [facility] for higher level of care. 6. The patient will ultimately require surgery to be done with cardiac anesthesia, if this is not possible, we can consider local anesthesia only or an IR procedure. 7. Consideration for right heart catheterization once the patient arrives at [facility]. 8. Follow up Cardiology recommendations. 9. DVT prophylaxis, heparin subcu. 10. The patient is Full Code. Dr. Alfredo, thank you for allowing me to assist in the care of your patient. If I may be of any assistance in the future, please do not hesitate to ask. Marke Campos JOB#: [id number] CC:
--- NOTE | 2019-07-09 21:33 | Cardiology Progress Note ---
Assessment/Plan Assessment/Plan 1. Nonsyncopal fall. 2. Hip fracture. 3. Diabetes mellitus. 4. History of patent foramen ovale 5. new sig pum. htn 6. Diastolic dysfunction failure will hold surgery in light of pulm htn will try transfer to [facility] for cardiac anesthesia dc ivf iv diuretic ischemia evaluation [facility] and office record reviewed d/w pulm d/w ortho d/s transfer center at [facility] Objective Last 24 Hour Vital Signs Date Time Temp Pulse Resp B/P (MAP) Pulse Ox O2 Delivery O2 Flow Rate FiO2 07/09/19 18:19 133/50 07/09/19 18:15 72 133/50 (77) 07/09/19 16:00 98.1 66 18 136/47 (76) 97 07/09/19 12:00 97.9 66 18 146/58 (87) 99 07/09/19 09:16 151/69 07/09/19 09:15 71 151/69 07/09/19 09:15 71 151/69 07/09/19 09:00 Room Air 07/09/19 08:00 98.3 71 17 151/69 (96) 97 07/09/19 04:00 97.2 85 18 125/69 (87) 97 Intake and Output 07/08/19 07/09/19 19:00 07:00 Intake Total 1260 ml 480 ml Output Total 1900 ml Balance 1260 ml -1420 ml Intake Oral 360 ml 480 ml IV Total 900 ml Output Urine Total 1900 ml # Voids 2 1 Laboratory Tests Test 07/09/19 05:15 07/09/19 16:55 07/09/19 20:56 Sodium Level 138 MMOL/L (136-145) Potassium Level 4.1 MMOL/L (3.5-5.1) Chloride Level 102 MMOL/L (98-107) Carbon Dioxide Level 27 MMOL/L (21-32) Anion Gap 9 mmol/L (5-15) Blood Urea Nitrogen 13 mg/dL (7-18) Creatinine 0.8 MG/DL (0.55-1.30) Estimat Glomerular Filtration Rate > 60 mL/min (>60) Glucose Level 118 MG/DL (74-106) H Calcium Level 8.7 MG/DL (8.5-10.1) Pro-B-Type Natriuretic Peptide 4402 pg/mL (0-125) H D-Dimer 1.52 mg/L FEU (0.00-0.49) H Arterial Blood pH 7.429 (7.350-7.450) Arterial Blood Partial Pressure CO2 34.7 mmHg (35.0-45.0) L Arterial Blood Partial Pressure O2 91.0 mmHg (75.0-100.0) Arterial Blood HCO3 22.5 mmol/L (22.0-26.0) Arterial Blood Oxygen Saturation 96.0 % (95-100) Arterial Blood Base Excess -1.4 (-2-2) Olvin Test Positive Tim Alfredo MD Jul 09, 2019 21:33
--- NOTE | 2019-07-09 22:43 | Cardiology Progress Note ---
Assessment/Plan Assessment/Plan 1. Nonsyncopal fall. 2. Hip fracture. 3. Diabetes mellitus. 4. History of patent foramen ovale 5. new sig pum. htn 6. Diastolic dysfunction failure 7. ILD? will hold surgery in light of pulm htn will try transfer to [facility] for cardiac anesthesia, so far no bed avaialbeas of 07/09 9 pm of ivf iv diuretic ct chest v/q scan if no beds consider spinal anesthesia ? Subjective Cardiovascular: Denies: chest pain, lightheadedness, palpitations Respiratory: Denies: shortness of breath Gastrointestinal/Abdominal: Denies: abdominal pain Genitourinary: Denies: burning Objective Last 24 Hour Vital Signs Date Time Temp Pulse Resp B/P (MAP) Pulse Ox O2 Delivery O2 Flow Rate FiO2 07/09/19 18:19 133/50 07/09/19 18:15 72 133/50 (77) 07/09/19 16:00 98.1 66 18 136/47 (76) 97 07/09/19 12:00 97.9 66 18 146/58 (87) 99 07/09/19 09:16 151/69 07/09/19 09:15 71 151/69 07/09/19 09:15 71 151/69 07/09/19 09:00 Room Air 07/09/19 08:00 98.3 71 17 151/69 (96) 97 07/09/19 04:00 97.2 85 18 125/69 (87) 97 General Appearance: no apparent distress, alert Neck: supple Cardiovascular: normal rate Respiratory/Chest: crackles/rales Abdomen: normal bowel sounds, non tender, soft Extremities: no swelling Intake and Output 07/08/19 07/09/19 19:00 07:00 Intake Total 1260 ml 480 ml Output Total 1900 ml Balance 1260 ml -1420 ml Intake Oral 360 ml 480 ml IV Total 900 ml Output Urine Total 1900 ml # Voids 2 1 Laboratory Tests Test 07/09/19 05:15 07/09/19 16:55 07/09/19 20:56 Sodium Level 138 MMOL/L (136-145) Potassium Level 4.1 MMOL/L (3.5-5.1) Chloride Level 102 MMOL/L (98-107) Carbon Dioxide Level 27 MMOL/L (21-32) Anion Gap 9 mmol/L (5-15) Blood Urea Nitrogen 13 mg/dL (7-18) Creatinine 0.8 MG/DL (0.55-1.30) Estimat Glomerular Filtration Rate > 60 mL/min (>60) Glucose Level 118 MG/DL (74-106) H Calcium Level 8.7 MG/DL (8.5-10.1) Pro-B-Type Natriuretic Peptide 4402 pg/mL (0-125) H D-Dimer 1.52 mg/L FEU (0.00-0.49) H Arterial Blood pH 7.429 (7.350-7.450) Arterial Blood Partial Pressure CO2 34.7 mmHg (35.0-45.0) L Arterial Blood Partial Pressure O2 91.0 mmHg (75.0-100.0) Arterial Blood HCO3 22.5 mmol/L (22.0-26.0) Arterial Blood Oxygen Saturation 96.0 % (95-100) Arterial Blood Base Excess -1.4 (-2-2) Olvin Test Positive Tim Alfredo MD Jul 09, 2019 22:43
[2019-07-10] VITALS: BP 160/58
[2019-07-10] MEDS: HYDROcodone/Acetamin 7.5/325 tab ORAL PRN (00:47)
[2019-07-10 04:00] VITALS: BP 151/56
[2019-07-10] MEDS: Morphine Sulfate 2mg/ml Inj(IV/IM USE ONLY) IVP PRN ×2 (05:31→12:58)
[2019-07-10 08:00] VITALS: BP 155/62
[2019-07-10] MEDS: Heparin 5000 units/ml inj SUBQ SCH (09:03)
[2019-07-10] MEDS: metFORMIN 500mg tab ORAL SCH (09:04)
[2019-07-10] MEDS: Irbesartan 150mg tablet ORAL SCH (09:04)
[2019-07-10] MEDS: Docusate 100mg cap ORAL SCH (09:06)
[2019-07-10] MEDS: Carvedilol 25mg Tab ORAL SCH (09:06)
[2019-07-10 12:00] VITALS: BP 149/59
[2019-07-10] MEDS ORDERED: ACETAMINOPHEN325 M1 ORAL (13:08)
[2019-07-10] MEDS ORDERED: MYLANTA II30 ML PO (13:10)
[2019-07-10] MEDS ORDERED: BISACODYL10 M1 RC (13:11)
[2019-07-10] MEDS ORDERED: DIPHENHYDRAMINE25 M1 ORAL (13:13)
[2019-07-10] MEDS ORDERED: COLACE100 MG ORAL (13:14)
[2019-07-10] MEDS ORDERED: FUROSEMIDE20 M1 IVP (13:16)
[2019-07-10] MEDS ORDERED: HEPARIN SO5000 UNIT2 SUBQ (13:18)
[2019-07-10] MEDS ORDERED: HYDROCODON-ACE1 EA16 ORAL (13:19)
[2019-07-10] MEDS ORDERED: AVAPRO150 MG ORAL (13:20)
[2019-07-10] MEDS ORDERED: MILK OF MA400 MG/51 ORAL (13:21)
[2019-07-10] MEDS ORDERED: GLUCOPHAGE500 MG ORAL (13:22)
[2019-07-10] MEDS ORDERED: MORPHINE 22 MG/1 ML IV ×2 (13:23→13:25)
[2019-07-10] MEDS ORDERED: ZOFRAN4 M3 ORAL (13:25)
[2019-07-10] MEDS ORDERED: POLYETHYLENE GL17 GM ORAL (13:26)
[2019-07-10] MEDS ORDERED: PROTONIX40 MG ORAL (13:26)
--- NOTE | 2019-07-10 15:15 | Diagnostic Imaging Report ---
Indications: Shortness of breath, pulmonary hypertension Technique: IV administration 5.5 mCi 99m technetium macroaggregated albumin. Images obtained over the lungs in multiple projections. Subsequently, patient inhaled 44 mCi aerosolized 99M technetium DTPA. Images obtained over the lungs in multiple projections Comparison: Reference made to chest radiograph dated 07/08/2019 Findings: Aerosol images demonstrate heterogeneous tracer uptake. Perfusion is somewhat heterogeneous, without discrete segmental or subsegmental perfusion defect. No evidence of aerosol perfusion mismatch demonstrated Impression: Findings deemed low probability for pulmonary embolus
--- NOTE | 2019-07-10 15:20 | Diagnostic Imaging Report ---
Indication: Leg pain, left hip fracture, shortness of breath Technique: Grayscale and duplex images of the bilateral lower extremity veins Comparison: None Findings: Bilaterally, grayscale and duplex images demonstrate no evidence of intraluminal thrombus. Normal phasic Doppler waveforms, demonstrating normal augmentation response and no evidence of valvular insufficiency. Greater saphenous vein(s) and tibial veins are patent. Normal compressibility. Incidentally noted is evidence of conclusion of the left common femoral artery an superficial femoral artery, with distal reconstitution of the popliteal artery. 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
--- NOTE | 2019-07-10 16:49 | Diagnostic Imaging Report ---
Clinical Indication: Shortness of breath Technique: Spiral acquisitions obtained through the chest. No IV contrast utilized, reason not stated. Multiplanar reconstructions generated. Total dose length product 184 mGycm. CTDIvol(s) 5 mGy. Dose reduction achieved using automated exposure control Comparison: none Findings: Areas of interstitial septal thickening, subpleural linear opacities, parenchymal airspace opacities with disordered architecture are seen scattered throughout the lungs bilaterally. There are some areas of sparing in the lung apices and right middle lobe. No effusions. The heart is mildly enlarged. The ascending thoracic aorta is ectatic but not frankly aneurysmal, measuring up to 4.5 cm in diameter. The main pulmonary artery is ectatic, measuring 3.7 cm in diameter. There are prominent mediastinal lymph nodes, with a paratracheal node measuring up to 2.6 x 1.4 cm. This demonstrates preserved architecture, however. No pericardial effusion. No axillary or chest wall mass or adenopathy. Subcentimeter nodules are seen in the thyroid bilaterally The bones demonstrate mild degenerative proliferative changes of the thoracic spine. The included upper abdominal anatomy demonstrates gallstones. There is a 4.5 cm cyst that appears to come off of the upper pole of the right kidney although barely contiguous with it. The kidneys demonstrate prominent extrarenal pelvises bilaterally. Granulomatous calcifications are seen within the spleen. There is an accessory splenule. Impression: Bilateral pulmonary parenchymal disease consisting of interstitial septal thickening, subpleural opacities, parenchymal airspace opacities, with some architectural distortion. Findings could represent acute pneumonia or pulmonary edema bilaterally, but could also indicate at least a component of chronic interstitial disease/pulmonary fibrosis. Correlate with clinical history and findings Cardiomegaly Ectatic pulmonary arteries, could indicate pulmonary arterial hypertension Ectatic but not frankly aneurysmal ascending thoracic aorta Nonspecific prominent mediastinal lymph nodes without milton adenopathy Incidental finding of cholelithiasis Incidental finding of presumed right upper pole renal cyst Evidence of old granulomatous disease within the spleen The CT scanner at [facility] is accredited by the [employer] and the scans are performed using protocols designed to limit radiation exposure to as low as reasonably achievable to attain images of sufficient resolution adequate for diagnostic evaluation.
--- NOTE | 2019-07-12 11:21 | Discharge Summary ---
Discharge Summary Discharge Summary _ DATE OF ADMISSION: 07/07/2019 DATE OF DISCHARGE: 07/10/2019. DISCHARGED BY: Dr. Tim Alfredo CONSULTANTS: Dr. Leobardo Horton BRIEF HOSPITAL COURSE: The patient is an 83-year-old female, who was at home, who was on her way to the bathroom, fell and injured her left hip. Patient had a lot of pain and paramedics were summoned. She was taken to [facility]. She has medical history of patent riddle ovale. Prior history of LV dysfunction did seem to have resolved. History of borderline diabetes, peripheral edema, hyperlipidemia. Upon evaluation at the ED, labs showed mild leukocytosis. Stable hemoglobin and hematocrit. X-ray of the femur showed left intertrochanteric fracture. Pelvic CT showed positive nondisplaced left hip intertrochanteric fracture. She was admitted for non-syncopal fall and left hip fracture. Preop care was done. Echocardiogram done as outpatient showed normal left ventricular systolic function with ejection fraction of 55 to 60%. No atrial enlargement, IVC normal. Mild MR with mild MS, mild with peak gradient of 17 and mean gradient of 9. She was placed on heparin for DVT prophylaxis. She was seen by orthopedic. She was recommended open reduction and internal fixation. Echocardiogram done showed new onset significant pulmonary hypertension. With PA pressure of 84. Surgery was placed on hold. Commissary Manager consulted. Patient noted to have severe pulmonary hypertension, disproportionate to LV dysfunction. She has no known history of prior venous thromboembolism, diet pill use for underlying lung disease. She had a prior history of pulmonary hypertension in the past, which resolved on follow-up echocardiogram. Etiology of new onset pulmonary hypertension unclear, suspect multifactorial secondary to underlying diastolic dysfunction and possible precapillary component. Patient was recommended would need cardiac anesthesia during surgery. Patient was recommended to transfer to higher level of care. May also require right heart catheterization. Chest CT showed bilateral pulmonary parenchymal disease consisting of interstitial septal thickening, subpleural opacities, parenchymal airspace opacities, with some architectural distortion. Findings could represent acute pneumonia or pulmonary edema, but could also indicate chronic interstitial disease or pulmonary fibrosis. VQ scan showed low probability for PE. Patient was eventually transferred [facility]. FINAL DIAGNOSES: Non-syncopal fall sustaining a left intertrochanteric fracture New onset significant pulmonary hypertension Acute diastolic dysfunction CHF Mild to moderate tricuspid regurgitation Hyperlipidemia Hypertension Patent foramen ovale Diabetes mellitus Possible interstitial lung disease DISPOSITION: Patient was transferred to [facility]. I have been assigned to complete a discharge summary on this account, I was not involved with the patient's management.--PERFECTO Bergeron Jacqueline Robles NP Jul 12, 2019 11:21
== END 2019-07-10 15:00 | disposition short-term general hospital (02) | DRG 535 ==
LOC: EDBD 14:38 → EMR 15:00 → EDBEDREQ 16:15 → 3E 17:00 → EDBEDREQ 17:46
DX: S72.145A Nondisplaced intertrochanteric fracture of left femur, initial encounter for closed fracture (principal); I50.31 Acute diastolic (congestive) heart failure; Q21.1 Atrial septal defect; J84.9 Interstitial pulmonary disease, unspecified; I11.0 Hypertensive heart disease with heart failure; E11.9 Type 2 diabetes mellitus without complications; I36.1 Nonrheumatic tricuspid (valve) insufficiency; E78.5 Hyperlipidemia, unspecified; I34.0 Nonrheumatic mitral (valve) insufficiency; I27.20 Pulmonary hypertension, unspecified
CPT/HCPCS: 36415; 36600; 71045; 71250; 72192; 78579; 78580; 80048; 80053; 81003; 82803; 83735; 83880; 85025; 85379; 85610; 85730; 86850; 86900; 86901; 93005; 93306; 93970; 96374; 99285; A9503